=== PATIENT | female | born 1935 | race Caucasian/White ===

== ENCOUNTER → 2017-05-14 | Outpatient (CLI) | payer MEDICARE, OTHER | END | disposition home or self-care (01) | LOC: BFHH 12:25 | PROVIDERS: ATTEND Emergency Medicine | DX: I10 Essential (primary) hypertension (principal); D50.9 Iron deficiency anemia, unspecified ==

== ENCOUNTER → 2018-03-28 | Outpatient (CLI) | payer MEDICARE, OTHER | LOC: BFHH 10:27 | PROVIDERS: ATTEND Emergency Medicine | DX: N39.0 Urinary tract infection, site not specified (principal) ==

== ENCOUNTER 2018-06-05 18:02 | Emergency (ER) | payer MEDICARE, OTHER ==
--- NOTE | 2018-06-05 18:16 | ED.PDOC ---
History of Present Illness - General Chief Complaint: Trauma Stated Complaint: s/p fall Time Seen by Provider: 06/05/18 18:14 Source: RN notes reviewed, EMS notes reviewed Additional Information: 83 YEAR OLD HERE FOR EVALUATION OF HEAD TRAUMA GROUND LEVEL FALL AT HOME UNWITNESSED NO LOC BUT THE PATIENT DOES NOT REMEMBER THE EVENT ( HAS HISTORY OF DEMENTIA ) SHE HAS NECK PAIN NO HEADACHE NO BLOOD OR FLUID FROM ENT NO FOCAL NUMBNESS OR WEAKNESS THERE IS BRUISE NOTED ON THE DORSUM OF THE RIGHT FOOT - History of Present Illness Timing/Duration: unsure Severity: mild Improving Factors: nothing Worsening Factors: nothing Associated Symptoms: denies symptoms Allergies/Adverse Reactions: Allergies NO KNOWN ALLERGY Allergy (Verified 06/05/18 18:18) Home Medications: Ambulatory Orders Ascorbic Acid [Vitamin C] 500 mg PO DAILY 06/05/18 Ayjmeid-Vdxifmcyhhowt-Esdsuiaz [Excedrin Extra Strength] 1 - 2 tab PO Q6H PRN Clonazepam 0.5 mg PO Q6H PRN 06/05/18 Clopidogrel Bisulfate [Plavix] 75 mg PO QD 06/05/18 Cyclobenzaprine HCl [Flexeril] 10 mg PO TID PRN 06/05/18 Dextromethorphan-Guaifenesin [Guaifenesin/Dextromethorp] 1 tab PO PRN 06/05/18 Escitalopram [Lexapro] 10 mg PO DAILY 06/05/18 Esomeprazole Magnesium [Nexium] 40 mg PO DAILY 06/05/18 HYDROcodone 5MG/APAP 325MG [[place] 5/325] 1 tab PO Q6H PRN 06/05/18 Magnesium Hydroxide [Milk Of Magnesia] 30 ml PO DAILY PRN 06/05/18 Melatonin-Pyridoxine [Melatonex] 1 tab PO BEDTIME 06/05/18 Meloxicam [Mobic] 7.5 mg PO DAILY 06/05/18 Metoprolol Tartrate 50 mg PO BID 06/05/18 Nitroglycerin [Nitrostat] 0.4 mg SL PRN 06/05/18 Ondansetron HCl [Zofran] 4 mg PO Q6H PRN 06/05/18 Sennosides [Ex-Lax Maximum Strength] 1 - 3 each PO DAILY PRN 06/05/18 Topiramate 25 mg PO DAILY 06/05/18 diphenhydrAMINE HCL [Benadryl] 25 mg PO Q6H PRN 06/05/18 Review of Systems - Review of Systems Constitutional: States: no symptoms reported EENTM: States: no symptoms reported Respiratory: States: no symptoms reported Cardiology: States: no symptoms reported Gastrointestinal/Abdominal: States: no symptoms reported Genitourinary: States: no symptoms reported Musculoskeletal: States: no symptoms reported Skin: States: no symptoms reported Neurological: States: no symptoms reported Endocrine: States: no symptoms reported Hematologic/Lymphatic: States: no symptoms reported Family Medical History - Family History Mother Family History: Unknown Living Status: Unknown Physical Exam - Physical Exam General Appearance: Alert, Comfortable Eye Exam: bilateral normal Ears, Nose, Throat: hearing grossly normal, normal ENT inspection, normal pharynx Neck: non-tender, full range of motion, supple Respiratory: chest non-tender, lungs clear, normal breath sounds, no respiratory distress, no accessory muscle use Cardiovascular/Chest: normal peripheral pulses, regular rate, rhythm, no edema, no gallop, no JVD, no murmur Peripheral Pulses: radial,right: 2+, radial,left: 2+, femoral,right: 2+, femoral ,left: 2+ Gastrointestinal/Abdominal: normal bowel sounds, non tender, soft, no organomegaly, no pulsatile mass Extremity: normal range of motion, non-tender, normal inspection, no pedal edema 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 Copy, Patient Portal Self Enrollment Instructions: DI for Trauma Referrals: MEJIA BRADSHAW [Primary Care Provider] - 1-2 Weeks Home Medications: Ambulatory Orders Ascorbic Acid [Vitamin C] 500 mg PO DAILY 06/05/18 Ixhcmsq-Wixldcvwsnvcp-Lmvcyqqe [Excedrin Extra Strength] 1 - 2 tab PO Q6H PRN Clonazepam 0.5 mg PO Q6H PRN 06/05/18 Clopidogrel Bisulfate [Plavix] 75 mg PO QD 06/05/18 Cyclobenzaprine HCl [Flexeril] 10 mg PO TID PRN 06/05/18 Dextromethorphan-Guaifenesin [Guaifenesin/Dextromethorp] 1 tab PO PRN 06/05/18 Escitalopram [Lexapro] 10 mg PO DAILY 06/05/18 Esomeprazole Magnesium [Nexium] 40 mg PO DAILY 06/05/18 HYDROcodone 5MG/APAP 325MG [[place] 5/325] 1 tab PO Q6H PRN 06/05/18 Magnesium Hydroxide [Milk Of Magnesia] 30 ml PO DAILY PRN 06/05/18 Melatonin-Pyridoxine [Melatonex] 1 tab PO BEDTIME 06/05/18 Meloxicam [Mobic] 7.5 mg PO DAILY 06/05/18 Metoprolol Tartrate 50 mg PO BID 06/05/18 Nitroglycerin [Nitrostat] 0.4 mg SL PRN 06/05/18 Ondansetron HCl [Zofran] 4 mg PO Q6H PRN 06/05/18 Sennosides [Ex-Lax Maximum Strength] 1 - 3 each PO DAILY PRN 06/05/18 Topiramate 25 mg PO DAILY 06/05/18 diphenhydrAMINE HCL [Benadryl] 25 mg PO Q6H PRN 06/05/18
[2018-06-05 18:18] VITALS: TEMP 97.8
--- NOTE | 2018-06-05 18:54 | CT ---
EXAM DESCRIPTION: Cervical Spine (accession [id number]), Head (accession [id number]) CLINICAL HISTORY: TRAUMA COMPARISON: March 19, 2012 Technique: Contiguous axial images of the brain were obtained without the administration of intravenous contrast. Coronal and sagittal reformats obtained and reviewed. This exam was performed according to our departmental dose-optimization program which includes use of Automated Exposure Control, adjustment of the mA and/or kV according to patient size and/or use of iterative reconstruction technique. Findings: Brain: Mild cerebral atrophy. Periventricular and deep white matter hypodensities, most commonly due to nonspecific white matter chronic microvascular ischemia.No hemorrhage. No territorial infarct. No mass effect. No herniation. Ventricles: Within normal limits for patient's age. Bones: No acute osseous abnormality. Paranasal sinuses: Unremarkable. Mastoid air cells: Unremarkable. Soft tissues: No acute abnormality. IMPRESSION: No acute intracranial abnormalities. Chronic changes as described EXAM DESCRIPTION: CT cervical spine without contrast CLINICAL HISTORY: 83 years Female TRAUMA COMPARISON: None TECHNIQUE: Multiplanar imaging through the cervical spine without contrast. This exam was performed according to our departmental dose-optimization program, which includes automated exposure control, adjustment of the mA and/or kV according to patient size and/or use of iterative reconstruction technique. FINDINGS: No fracture. No subluxation. Multilevel disc height loss, osteophyte formation and mild posterior disc bulging from C3 through C7. Soft tissues are unremarkable. Visualized lung is clear. IMPRESSION: No acute abnormality. No fracture or subluxation. Degenerative changes as described. See above for CT head report. Electronically signed by: Keith Mosley MD 06/05/2018 6:52 PM CDT
--- NOTE | 2018-06-05 18:57 | RAD ---
EXAM DESCRIPTION: Foot,Right 2 Views CLINICAL HISTORY: 83 years Female, TRAUMA COMPARISON: None. FINDINGS: Bones are diffusely demineralized. No fracture or dislocation. Soft tissues are unremarkable. IMPRESSION: No acute abnormality. Electronically signed by: Keith Mosley MD 06/05/2018 6:55 PM CDT
[2018-06-05 19:19] VITALS: BP 121/67; O2SAT 96
== END 2018-06-05 19:19 | disposition home or self-care (01) ==
LOC: ER 18:02
DX: S09.90XA Unspecified injury of head, initial encounter (principal); M54.2 Cervicalgia; F03.90 Unspecified dementia, unspecified severity, without behavioral disturbance, psychotic disturbance, mood disturbance, and anxiety; Z79.82 Long term (current) use of aspirin; Z79.02 Long term (current) use of antithrombotics/antiplatelets; W19.XXXA Unspecified fall, initial encounter; Y92.009 Unspecified place in unspecified non-institutional (private) residence as the place of occurrence of the external cause

== ENCOUNTER → 2018-06-22 | Outpatient (CLI) | payer MEDICARE | LOC: BFHH 09:37 | PROVIDERS: ATTEND Emergency Medicine | DX: Z00.00 Encounter for general adult medical examination without abnormal findings (principal); I10 Essential (primary) hypertension; E11.9 Type 2 diabetes mellitus without complications; I50.20 Unspecified systolic (congestive) heart failure; E78.4 Other hyperlipidemia; E03.9 Hypothyroidism, unspecified ==